=== PATIENT | male | born 1970 | race Caucasian/White ===

== ENCOUNTER 2016-09-04 01:23 | Inpatient (IN) | payer BC, OTHER ==
[~2016-09-04] VITALS: Ht 180.3 cm; Wt 112.8 kg
[2016-09-04 02:07] LABS: Basophils # (auto) 0 uL; Basophils % (auto) 0.5 % (0.0-2.0); Eosinophils # (auto) 0.4 uL; Eosinophils % (auto) 4.5 % (0.0-7.0); Hematocrit 46.3 % (41.0-53.0); Hemoglobin 15.3 g/dL (13.5-17.5); Lymphocytes # (auto) 2.9 uL; Mean Corpuscular Hemoglobin 29.3 pg (28.0-32.0); Mean Corpuscular Volume 88.7 fL (80.0-100.0); Mean Platelet Volume 8.4 fL (7.4-10.4); Monocytes # (auto) 0.6 uL; Monocytes % (auto) 8.2 % (0.0-12.0); Neutrophils # (auto) 3.9 uL; Neutrophils % (auto) 49.8 % (37.0-80.0); Platelet Count (auto) 298 10^3/uL (140-450); Red Cell Distribution Width 14.3 % (11.6-16.0); White Blood Cell 7.9 10^3/uL (4.4-10.8)
[2016-09-04 02:22] LABS: Partial Thromboplastin Time 29.4 sec (22.64-33.71); Prothrombin Time 10.8 sec (9.37-12.3)
[2016-09-04 02:28] LABS: Albumin 3.9 g/dL (3.4-5.0); Anion Gap 9 (5-15); Aspartate Aminotransferase 17 U/L (15-37); BUN/Creatinine Ratio 14.1; Blood Urea Nitrogen 18 mg/dL (7-18); Carbon Dioxide 26 mmol/L (21-32); Chloride 105 mmol/L (98-107); GFR African American 77 mL/min; GFR Non-African American 64 mL/min; Glucose 144 mg/dL (74-106); Potassium 3.9 mmol/L (3.5-5.1); Sodium 140 mmol/L (136-145)
[2016-09-04 02:32] LABS: Alkaline Phosphatase 91 U/L (45-117); Bilirubin, Total 0.2 mg/dL (0.2-1.0); Total Protein 7.6 g/dL (6.4-8.2)
[2016-09-04] MEDS ORDERED: ASPirin 81 mg TAB PO ONE (03:00)
[2016-09-04 03:10] LABS: B-Type Natriuretic Peptide 5.1 pg/mL (0-100); Temperature: 21.8 C (20.0-25.0)
[2016-09-04] MEDS ORDERED: MORPHINE SULF INJ 2 MG/ML SYRINGE 1ML IV PRN (06:15)
[2016-09-04] MEDS ORDERED: ACETAMINOPHEN 325 MG TAB PO PRN (06:15)
[2016-09-04] MEDS ORDERED: ONDANSETRON HCL 4 MG/2 ML VIAL IV PRN (06:15)
[2016-09-04] MEDS ORDERED: NITROGLYCERIN 0.4 MG SL TAB SL PRN (06:15)
[2016-09-04 06:58] LABS: Cholesterol 260 mg/dL (< 200); HDL Cholesterol 38 mg/dL (40-59); LDL Cholesterol 196 mg/dL (< 100); Triglycerides 189 mg/dL (< 150)
[2016-09-04] MEDS ORDERED: METOPROLOL TARTRATE 25 MG TAB PO SCH (10:00)
[2016-09-04] MEDS: FAMOTIDINE 20 MG TAB PO SCH ×2 (10:00→22:48)
[2016-09-04] MEDS ORDERED: ASPirin 81 mg TAB PO SCH (10:00)
[2016-09-04] MEDS ORDERED: ENOXAPARIN SOD 40 MG/0.4 ML SYRINGE SC SCH (10:00)
[2016-09-04] MEDS ORDERED: METOPROLOL TARTRATE 25 MG TAB PO ONE (13:30)
[2016-09-04] MEDS: HYDROcodone-ACET 5/325MG TAB PO PRN ×2 (14:37→18:44)
[2016-09-04] MEDS ORDERED: LORazepam 2MG/ML-1ML VIAL IV PRN (18:45)
[2016-09-04 19:04] LABS: Urine RBC None Seen /hpf (0 - 3)
[2016-09-04 19:11] LABS: Urine Bilirubin Negative (Negative); Urine Blood Negative /uL (Negative); Urine Color Yellow (Yellow); Urine Glucose Normal (Normal); Urine Ketone Negative (Negative); Urine Nitrite Negative (Negative); Urine Urobilinogen Normal (Negative)
[2016-09-04 22:00] VITALS: BP 122/71
[2016-09-04] MEDS: METOPROLOL TARTRATE 25 MG TAB PO SCH (22:48)
[2016-09-04] MEDS: ATORVASTATIN 20 MG TAB PO SCH (22:49)
[2016-09-05 05:45] VITALS: BP 127/71
[2016-09-05 06:30] LABS: Basophils # (auto) 0 uL; Basophils % (auto) 0.6 % (0.0-2.0); Eosinophils # (auto) 0.4 uL; Eosinophils % (auto) 5.9 % (0.0-7.0); Hematocrit 43.3 % (41.0-53.0); Hemoglobin 14.6 g/dL (13.5-17.5); Lymphocytes # (auto) 2.2 uL; Mean Corpuscular Hgb Conc. 33.7 g/dL (32.0-36.0); Mean Corpuscular Volume 88.9 fL (80.0-100.0); Mean Platelet Volume 8.5 fL (7.4-10.4); Monocytes # (auto) 0.5 uL; Monocytes % (auto) 8.9 % (0.0-12.0); Neutrophils # (auto) 3.1 uL; Neutrophils % (auto) 49.6 % (37.0-80.0); Platelet Count (auto) 279 10^3/uL (140-450); Red Cell Distribution Width 14.8 % (11.6-16.0); White Blood Cell 6.2 10^3/uL (4.4-10.8)
[2016-09-05 06:58] LABS: Albumin 3.4 g/dL (3.4-5.0); BUN/Creatinine Ratio 11.5; Bilirubin, Total 0.5 mg/dL (0.2-1.0); Calcium 8.7 mg/dL (8.5-10.1); Potassium 4.3 mmol/L (3.5-5.1); Total Protein 6.9 g/dL (6.4-8.2)
[2016-09-05 09:00] VITALS: BP 114/65
[2016-09-05] MEDS: FAMOTIDINE 20 MG TAB PO SCH ×3 (10:00→22:19)
[2016-09-05] MEDS: METOPROLOL TARTRATE 25 MG TAB PO SCH ×2 (10:00→22:18)
[2016-09-05] MEDS: ASPirin 81 mg TAB PO SCH ×2 (10:00→17:00)
[2016-09-05 13:00] VITALS: BP 120/79
[2016-09-05 17:00] VITALS: BP 113/76
[2016-09-05 22:00] VITALS: BP 122/69
[2016-09-05] MEDS: ATORVASTATIN 20 MG TAB PO SCH (22:19)
[2016-09-06 05:39] VITALS: BP 117/75
[2016-09-06] MEDS ORDERED: ADENOSINE 95 MG in GIVE UN-DILUTED 0 ML IV STA (08:13)
[2016-09-06 09:02] VITALS: BP 129/71
[2016-09-06] MEDS: ASPirin 81 mg TAB PO SCH (11:26)
[2016-09-06] MEDS: FAMOTIDINE 20 MG TAB PO SCH (11:27)
[2016-09-06] MEDS: METOPROLOL TARTRATE 25 MG TAB PO SCH (11:27)
[2016-09-06 13:02] VITALS: BP 130/76
== END 2016-09-06 14:50 | disposition home or self-care (01) | DRG 69 ==
LOC: ER 01:28 → TELE 01:29 → TELE-WESTW 08:13 → TELE-E-ADS 08:42 → TELE-WESTW 15:28
PROVIDERS: ADMIT Nurse Practitioner; ATTEND Internal Medicine
PROC: 5A09357 Assistance with Respiratory Ventilation, Less than 24 Consecutive Hours, Continuous Positive Airway Pressure (ICD-10-PCS; principal; 2016-09-04)
DX: G45.9 Transient cerebral ischemic attack, unspecified (principal); I25.10 Atherosclerotic heart disease of native coronary artery without angina pectoris; E66.9 Obesity, unspecified; E78.5 Hyperlipidemia, unspecified; G47.10 Hypersomnia, unspecified; G47.33 Obstructive sleep apnea (adult) (pediatric); I10 Essential (primary) hypertension; Z88.0 Allergy status to penicillin; Z68.33 Body mass index [BMI] 33.0-33.9, adult
CPT/HCPCS: 36415; 70450; 70551; 71020; 78452; 80053; 80061; 81001; 83036; 83880; 84484; 85025; 85610; 85730; 87205; 93017; 93306; 93886; 94660; J0153